=== PATIENT | male | born 1995 | race Caucasian/White ===

== ENCOUNTER 2018-07-17 09:39 | Emergency (ER) | payer OTHER | END 2018-07-17 10:05 | disposition home or self-care (01) | LOC: M ED 09:39 | DX: L03.114 Cellulitis of left upper limb (principal); L02.414 Cutaneous abscess of left upper limb; T88.0XXA Infection following immunization, initial encounter; X58.XXXA Exposure to other specified factors, initial encounter; Y92.89 Other specified places as the place of occurrence of the external cause | CPT/HCPCS: 99282 ==